=== PATIENT | female | born 1980 | race Caucasian/White ===

== ENCOUNTER 2021-05-11 18:57 | Emergency (ER) | payer OTHER ==
[2021-05-11 19:33] LABS: HEMOGLOBIN 14.5 gm/dl (12.3-15.3); RED BLOOD COUNT 4.7 M/UL (4.00-5.10); WHITE BLOOD COUNT 8.6 K/UL (4.5-11.0)
[2021-05-11 20:03] LABS: BUN/CREATININE RATIO 11 (0-10)
== END 2021-05-11 22:25 | disposition home or self-care (01) ==
LOC: ER1 18:57
PROVIDERS: Physician Assistant Medical
DX: R07.89 Other chest pain (principal); F17.290 Nicotine dependence, other tobacco product, uncomplicated; Z88.5 Allergy status to narcotic agent
CPT/HCPCS: 71045; 80053; 82550; 82553; 83874; 84439; 84443; 84484; 85025; 85379; 93005; 99285; Q9967